=== PATIENT | male | born 1955 | race Caucasian/White ===

== ENCOUNTER 2017-03-11 18:05 | Emergency (ER) | payer BC ==
[2017-03-11 20:23] VITALS: BP 127/67
--- NOTE | 2017-03-11 20:46 | RAD ---
INDICATION: Left ring finger laceration COMPARISON: None TECHNIQUE: AP, lateral, and oblique views were obtained. FINDINGS: 3 views show no acute fracture. There is a laceration with a subcutaneous emphysema and edema extending from the metacarpophalangeal joint to the distal phalanx. There is no foreign body. IMPRESSION: EXTENSIVE SOFT TISSUE INJURY CONSISTENT WITH LACERATION.
--- NOTE | 2017-03-11 21:20 | ED ---
Laceration/Wound HPI - HPI Summary HPI Summary: 61M presents with laceration to left ring finger from whitewasher today. was water in whitewasher. has ring on finger can get off. tetanus is up to date. has full ROM of finger. no numbness or tingling. has not taken anything for pain. - History of Current Complaint Stated Complaint: LACERATION TO RING FINGER Time Seen by Provider: 03/11/17 19:56 Pain Intensity: 2 - Allergy/Home Medications Allergies/Adverse Reactions: Allergies Allergy/AdvReac Type Severity Reaction Status Date / Time No Known Allergies Allergy Verified 03/05/13 14:33 PMH/Surg Hx/FS Hx/Imm Hx Endocrine/Hematology History: Denies: Hx Anticoagulant Therapy Cardiovascular History: Reports: Hx Hypertension Infectious Disease History: No Infectious Disease History: Denies: Traveled Outside the [place] in Last 30 Days - Family History Known Family History: Positive: Cardiac Disease - Social History Alcohol Use: Occasionally Substance Use Type: Reports: None Smoking Status (MU): Unknown if Ever Smoked Review of Systems Negative: Fever Negative: Chest Pain Negative: Shortness Of Breath Positive: Other - left finger laceration All Other Systems Reviewed And Are Negative: Yes Physical Exam Triage Information Reviewed: Yes Vital Signs On Initial Exam: Initial Vitals Temp Pulse Resp BP Pulse Ox 98.0 F 117 20 141/72 98 03/11/17 18:10 03/11/17 18:10 03/11/17 18:10 03/11/17 18:10 03/11/17 18:10 Vital Signs Reviewed: Yes Appearance: Positive: Well-Appearing Skin: Positive: Warm, Dry, Other - 2cm laceration of proximal phlanax of left ring finger that is curved in shape Head/Face: Positive: Normal Head/Face Inspection Eyes: Positive: Normal, Conjunctiva Clear Respiratory/Lung Sounds: Positive: Clear to Auscultation, Breath Sounds Present Cardiovascular: Positive: Normal, RRR Musculoskeletal: Positive: Strength/ROM Intact - left hand, Other - good pulses , capillary refill<2secs, Procedures - Splinting Location: left finger Pre-Made Type: metal Splint: finger - Laceration/Wound Repair 1 Location: Other - finger left Description: Irregular Anesthesia: Digital, 1.0% Length, Depth and Shape: 2cm by 1/4 cm Betadine Prep?: Yes Irrigated w/ Saline (ccs): 1,000 Closure: Single Layer Suture Type: Prolene - 4-0 Number of Sutures: 6 Diagnostics - Vital Signs Vital Signs Temp Pulse Resp BP Pulse Ox 03/11/17 20:19 97.7 F 78 17 127/67 98 03/11/17 19:20 97.9 F 78 17 127/66 99 03/11/17 18:10 98.0 F 117 20 141/72 98 - Laboratory Lab Statement: Any lab studies that have been ordered have been reviewed, and results considered in the medical decision making process. Laceration Repair Course/Dx - Course Course Of Treatment: 61M presents with laceration to left ring finger from whitewasher today. was water in whitewasher. has ring on finger can get off. tetanus is up to date. has full ROM of finger. no numbness or tingling. cut off ring with ring cutter. xray shows no fx. neurovascular intact. placed 6 sutures and placed in finger splint. patient understands and agrees with plan. - Differential Dx Differental Diagnoses: Abrasion, Avulsion, Fracture, Laceration - Clinical Impression Provider Diagnoses: Laceration of left ring finger Discharge - Discharge Plan Condition: Good Disposition: HOME Prescriptions: Cephalexin CAP* [Keflex CAP*] 500 mg PO BID #9 cap Patient Education Materials: Care For Your Stitches (ED) Referrals: Clarisse Shelton MD [Primary Care Provider] - Additional Instructions: Take antibiotic twice a day for 5 days Keep area in splint, change dressing once a day Keep area clean and dry Take Tylenol or ibuprofen for pain every 6 hours Return to ED or primary for suture removal in 10-14 days Return to ED if develop signs of infection such as fever, spreading redness, or pus formation
[2017-03-11] MEDS ORDERED: Cephalexin CAP* 500 MG PO ONE (21:21)
== END 2017-03-11 21:32 | disposition home or self-care (01) ==
LOC: ED 18:05
DX: S61.215A Laceration without foreign body of left ring finger without damage to nail, initial encounter (principal); W45.8XXA Other foreign body or object entering through skin, initial encounter; Y93.9 Activity, unspecified; Y92.9 Unspecified place or not applicable; I10 Essential (primary) hypertension
CPT/HCPCS: 12001; 73140; 99282; A9270-GY